=== PATIENT | female | born 1980 | race Caucasian/White ===

== ENCOUNTER 2018-03-06 15:59 | Emergency (ER) | payer MEDICARE, MEDICAID ==
[2018-03-06 17:01] VITALS: BP 113/89
--- NOTE | 2018-03-06 17:38 | ED ---
Back Pain - HPI Summary HPI Summary: 37 yr old female with low back pain. Onset of symptoms a couple of days ago when lifting a propane tank with her boyfriend. pain in lumbar spine and radiates into her left gluteal area. No numbness, tingling, weakness, saddle numbness. No bowel or bladder incontinence. - History of Current Complaint Chief Complaint: UCBackPain Stated Complaint: S/P FALL-BACK PAIN Time Seen by Provider: 03/06/18 17:23 Hx Last Menstrual Period: 03/05/18 Pain Intensity: 10 - Allergies/Home Medications Allergies/Adverse Reactions: Allergies Allergy/AdvReac Type Severity Reaction Status Date / Time No Known Allergies Allergy Verified 03/06/18 16:58 Home Medications: Home Medications Levothyroxine TAB* [Synthroid TAB*] 50 mcg PO DAILY 03/06/18 [History Confirmed 03/06/18] Naproxen [Naprosyn 500 mg tab] 500 mg PO DAILY 03/06/18 [History Confirmed 03/06] PMH/Surg Hx/FS Hx/Imm Hx Endocrine/Hematology History: Reports: Hx Thyroid Disease Respiratory History: Reports: Hx Asthma - Surgical History Surgery Procedure, Year, and Place: PARTIAL THYROIDECTOMY Infectious Disease History: No Infectious Disease History: Denies: Traveled Outside the [place] in Last 30 Days - Family History Known Family History: Positive: None - Social History Occupation: Employed Full-time Lives: With Family Alcohol Use: Weekly Substance Use Type: Reports: None Smoking Status (MU): Never Smoked Tobacco Review of Systems Constitutional: Negative Positive: Other - bakc pin Negative: Weakness, Paresthesia, Numbness All Other Systems Reviewed And Are Negative: Yes Physical Exam Triage Information Reviewed: Yes Vital Signs On Initial Exam: Initial Vitals Temp Pulse Resp BP Pulse Ox 98.2 F 83 17 113/89 100 03/06/18 16:54 03/06/18 16:54 03/06/18 16:54 03/06/18 16:54 03/06/18 16:54 Vital Signs Reviewed: Yes Appearance: Positive: Well-Appearing, No Pain Distress Skin: Positive: Warm, Skin Color Reflects Adequate Perfusion Head/Face: Positive: Normal Head/Face Inspection Eyes: Positive: EOMI, [id number] ENT: Positive: Normal ENT inspection Neck: Positive: Nontender Cardiovascular: Positive: RRR. Negative: Murmur Abdomen Description: Negative: Distended Musculoskeletal: Positive: Normal, Strength/ROM Intact, Other - some tenderness diffuse lumbar spine Neurological: Positive: Sensory/Motor Intact, Alert, Oriented to Person Place, Time, CN Intact II-III Psychiatric: Positive: Normal Diagnostics - Vital Signs Vital Signs Temp Pulse Resp BP Pulse Ox 03/06/18 16:54 98.2 F 83 17 113/89 100 - Laboratory Lab Statement: Any lab studies that have been ordered have been reviewed, and results considered in the medical decision making process. - Radiology lumbar spine Xray Interpretation: No Acute Changes Radiology Interpretation Completed By: Radiologist Back Pain Course/Dx - Diagnoses Provider Diagnoses: Low back strain Discharge - Sign-Out/Discharge Documenting (check all that apply): Discharge/Admit/Transfer - Discharge Plan Condition: Good Disposition: HOME Prescriptions: Cyclobenzaprine TAB* [Flexeril 10 MG TAB*] 10 mg PO BID PRN #10 tab PRN Reason: Spasms Ibuprofen TAB* [Motrin TAB* 600 MG] 600 mg PO Q6H PRN #20 tab PRN Reason: Pain Patient Education Materials: Low Back Strain (ED) Referrals: Morena Temple [Primary Care Provider] - 2 Days - Billing Disposition and Condition Condition: GOOD Disposition: HOME
--- NOTE | 2018-03-06 18:24 | RAD ---
Indication: Back pain following injury 2 days ago. Comparison: No relevant prior exams available on the [facility] for comparison. Technique: AP, lateral, and oblique views lumbar sacral spine. Report: Alignment is anatomic. No cortical disruption or trabecular impaction to indicate a vertebral body fracture. Oblique views without evidence for spondylolysis. Preserved disc spaces. Unremarkable soft tissue contours. IMPRESSION: No traumatic injury of the lumbar sacral spine evident. Negative exam.
== END 2018-03-06 18:40 | disposition home or self-care (01) ==
LOC: UCCORT 15:59
DX: S39.012A Strain of muscle, fascia and tendon of lower back, initial encounter (principal); E89.0 Postprocedural hypothyroidism; Z79.899 Other long term (current) drug therapy; X50.0XXA Overexertion from strenuous movement or load, initial encounter; Y93.89 Activity, other specified; Y92.9 Unspecified place or not applicable
CPT/HCPCS: 72110; 99202; G0463